=== PATIENT | female | born 1940 | race African-American/Black ===

== ENCOUNTER 2019-06-19 11:39 | Inpatient (IN) ==
[2019-06-19 12:43] LABS: URINE SOURCE CATH
[2019-06-19 12:46] LABS: BASO# 0.01 X1000 (0.0-0.2); BASO% 0.1 % (0.0-0.8); HEMOGLOBIN 11.5 g/dL (12.0-16.0); IMM GRAN# 0.03 X1000 (0.0-0.04); IMM GRAN% 0.2 % (0.0-0.5); LYMPH% 9.1 % (20.5-51.1); MCH 27.1 PG (27-31); MCHC 32.9 g/dL (33-37); MCV 82.4 FL (81-99); MONO# 1.88 X1000 (0.11-0.59); MONO% 15.6 % (1.7-9.3); MPV 12.2 FL (7.4-10.4); NEUT# 9.05 X1000 (1.4-6.5); PLT 176 X1000 (130-400); RBC 4.25 XMIL (4.2-5.4); WBC 12.07 X1000 (4.8-10.8)
[2019-06-19 12:49] LABS: BILIRUBIN URINE NEGATIVE (NEGATIVE); BLOOD URINE MODERATE (NEGATIVE); COLOR YELLOW; GLUCOSE URINE 100 mg/dL (NEGATIVE); KETONE URINE TRACE mg/dL (NEGATIVE); LEUKOCYTES URINE NEGATIVE (NEGATIVE); NITRITE URINE NEGATIVE (NEGATIVE); PH URINE 5.5; PROTEIN URINE 70 mg/dL (NEGATIVE); SP GRAVITY URINE 1.019; TURBIDITY URINE HAZY (CLEAR); UROBILINOGEN URINE 2 mg/dL (NORMAL)
[2019-06-19 12:50] LABS: UR EPITHELIAL CELLS >10 /HPF (<10); URINE BACTERIA 4+ /HPF; URINE RBC <10 /HPF (<10); URINE WBC <10 /HPF (<10)
--- NOTE | 2019-06-19 13:16 | Diag Imaging Result Doc PS360 ---
EXAM: CT HEAD W/O CONTRAST INDICATION: recurrent falls, CHI, R orbital injury TECHNIQUE: This exam was performed using automated exposure control, adjustment of mA or kV according to patient size, and/or use of iterative reconstruction technique. COMPARISON: None. FINDINGS: There is patchy low attenuation in the periventricular and subcortical white matter suggesting fairly advanced microangiopathy. There is no definite acute infarct given the limited sensitivity of CT versus MRI. There is no discrete intracranial mass, mass effect, or intracranial hemorrhage. There is right periorbital soft tissue edema. The calvaria is intact. IMPRESSION: Chronic appearing white matter changes as described. No evidence of acute intracranial pathology. Electronically signed by Glen Rooney 06/19/2019 1:14 PM
--- NOTE | 2019-06-19 13:22 | Diag Imaging Result Doc PS360 ---
EXAM: CT ORBIT W/O CONTRAST INDICATION: recurrent falls, CHI, R orbital injury TECHNIQUE: This exam was performed using automated exposure control, adjustment of mA or kV according to patient size, and/or use of iterative reconstruction technique. COMPARISON: None. FINDINGS: There is prominent right periorbital soft tissue edema. There is no retrobulbar hematoma. The globes are intact. There is no orbital fracture. The remaining visualized facial bones are intact. The paranasal sinuses are clear. The mastoid air cells are clear. The mandible appears to be normally located. IMPRESSION: Right periorbital soft tissue edema but no evidence of orbital fracture. Electronically signed by Glen Rooney 06/19/2019 1:20 PM
[2019-06-19 13:24] LABS: ALB/GLOB RATIO 1.1; ALBUMIN 3.9 g/dL (3.5-5.0); CREATININE 1.4 mg/dL (0.5-0.9); MAGNESIUM 1.5 mg/dL (1.5-2.7); POTASSIUM 5.2 mmol/L (3.5-5.1); TOTAL BILIRUBIN 0.89 mg/dL (0.20-1.00); TOTAL PROTEIN 7.3 g/dL (6.3-8.3)
--- NOTE | 2019-06-19 13:25 | Diag Imaging Result Doc PS360 ---
EXAM: KNEE 3 VIEWS LEFT INDICATION: trauma, pain, decr. ROM TECHNIQUE: 3 views COMPARISON: 06/15/2016 FINDINGS: There is a thin bony fragmentat the medial aspect of the distal fibula that cannot be identified on the previous study. This is suspicious for an avulsed fracture fragment. Its location suggests an MCL injury. Please correlate clinically. There is also an acute nondisplaced fracture traversing the patella horizontally. No other discrete fracture is identified. There is soft tissue edema at the anterior and medial aspect of the knee. IMPRESSION: 1.Nondisplaced patellar fracture as described. 2.Avulsed bony fragment at the medial aspect of the distal fibula, which can be associated with MCL injury. Electronically signed by Glen Rooney 06/19/2019 1:23 PM
--- NOTE | 2019-06-19 13:26 | Diag Imaging Result Doc PS360 ---
EXAM: CHEST-1 VIEW INDICATION: pain, trauma TECHNIQUE: One view COMPARISON: 09/26/2018 FINDINGS: The lungs are grossly clear. There is no discrete pleural fluid collection or pneumothorax. The cardiomediastinal silhouette and central vasculature are grossly unremarkable. IMPRESSION: No evidence of acute pathology by plain radiograph. Electronically signed by Glen Rooney 06/19/2019 1:24 PM
[2019-06-19 13:38] LABS: CK INDEX 0.9 (0.0-2.5); CK-MB 29.48 ng/mL (0.0-5.0)
[2019-06-19 13:45] LABS: INR 1.17; PROTIME 15.1 Seconds (11.0-16.0); PTT 26.8 Seconds (22.3-41.8)
--- NOTE | 2019-06-19 14:40 | PROVIDER DOCUMENTATION ---
This chart was entered by Ching Montemayor Scribe, acting as scribe for Tate Collier MD. HPI-General Adult - General Chief Complaint: Chest Pain Stated Complaint: Fall Time Seen by Provider: 06/19/19 12:06 Source: patient, family (cousin/manager copy) Allergies/Adverse Reactions: Patient Allergies Allergy/AdvReac Type Severity Reaction Status Date / Time No Known Allergies Allergy Verified 06/19/19 12:21 Home Medications: Home Medication List Medication Instructions Recorded Confirmed Last Taken Type Metformin [Glucophage] 500 mg BID 06/15/16 06/19/19 06/18/19 History Lisinopril 1 tab PO DAILY 06/19/19 06/19/19 06/18/19 History Simvastatin 1 tab PO DAILY 06/19/19 06/19/19 06/18/19 History - History of Present Illness -Gen Adult Nature of Presenting Problems: 78yof presents to ED by EMS cc pain in left knee, right eye/cheek swelling and bruised, weakness and multiple falls since . Pt reports she fell while going to mailbox on and hit right eye/cheek, crawled back to porch and got herself up.Pt cousin/manager copy at bedside reports pt fell last night and then again this morning while trying to open door. Cousin also reports pt lives in a bad living situation, alone/by choice, has no heat and she is unsure if pt is compliant with medications. 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 Pt denies phillip/neck pain/back pain. Pt has hx of DM, HTN and hyperlipidemia. . Location of Pain/Injury: reports: face (right eye/cheek), lower extremity (left knee) Pain Radiation: reports: no radiation Quality of Pain: reports: aching, throbbing Severity: reports: mild, moderate Onset/Duration: reports: 3 days ago Context/Activities at Onset: reports: light activity Modifying Factors: worse with: movement, palpation Similar Symptoms Previously?: No Recently seen or treated by another doctor?: No Review of Systems - Adult - REVIEW OF SYSTEMS - ADULT Constitutional: reports: see HPI, [place]. denies: chills, fever Eyes: reports: see HPI, eye pain (right eye/cheek is swollen shut and has bruise) Ears, Nose, Mouth & Throat: reports: no symptoms reported Cardiovascular: reports: see HPI, chest pain (left side) Respiratory: reports: no symptoms reported Gastrointestinal: reports: no symptoms reported Genitourinary: reports: no symptoms reported Musculoskeletal: reports: see HPI, joint pain (left knee) Integumentary: reports: no symptoms reported Neurological: reports: no symptoms reported Psychiatric: reports: no symptoms reported Endocrine: reports: no symptoms reported Hematologic/Lymphatic: reports: no symptoms reported Allergic/Immunologic: reports: no symptoms reported All Other Systems: Reviewed and Negative Past History - Adult - PAST MEDICAL HISTORY-ADULT Review of Records: reports: Nursing Assessment Review, Medications Reviewed, Social history reviewed & non-contributory. Major Childhood Illnesses: reports: denies history Cardiovascular: reports: HTN, hyperlipidemia Respiratory: reports: denies history Gastrointestinal: reports: denies history Obstetrical/Gynecological: reports: denies history Genitourinary: reports: denies history Musculoskeletal: reports: denies history Neurological: reports: denies history Endocrine/Immune: reports: Diabetes Other Conditions: reports: denies history - PRIOR SURGERIES/PROCEDURES Surgical/Procedure History: reports: other (right rotator cuff) - IMMUNIZATION STATUS Childhood Immunizations: See Nurse Assessment Flu Vaccine: See Nurse Assessment - FAMILY HISTORY Family History: reviewed, not pertinent - SOCIAL HISTORY Smoking: denies Physical Exam-General - PHYSICAL EXAM-ADULT Initial Vital Signs Reviewed: Yes - CONSTITUTIONAL General Appearance: alert. negative: anxious, combative - EYES Eyes: PERRL/EOMI, other (right eye is swollen shut and has bruise to eyelid) - HEAD, EARS, NOSE, MOUTH & THROAT HENMT: normocephalic/atraumatic, moist mucous membranes, other (tenderness, bruising to right cheekbone) - RESPIRATORY Respiratory: chest non-tender, lungs clear, normal breath sounds. negative: wheezing - CARDIOVASCULAR Cardiovascular: normal peripheral pulses, no edema, tachycardia. negative: regular rate, rhythm, bradycardia - GASTROINTESTINAL (ABDOMEN) Abdominal Exam: normal bowel sounds, non tender, soft. 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 negative: anxious, disheveled Progress - PLAN OF CARE/RESULTS Progress/Plan/Lab Results: Vital Signs - 8 hr 06/19/19 11:52 Temperature 98.2 F Pulse Rate 118 H Respiratory Rate 18 Blood Pressure 153/95 O2 Sat by Pulse Oximetry 100 Laboratory Results - last 24 hr 06/19/19 11:55 POC Glucose 115 H Result Diagrams: 06/19/19 12:09 06/19/19 12:09 - REASSESSMENT Reassessment #2 Time Reassessed: 13:50 Status: unchanged (imaging reveals patella fx; remaining imaging without fx. lab suggests rhabdo from laying on floor. will consult for admit) - EKG 1 Time of EKG reading by physician:: 12:01 EKG Read and Signed by:: Tate Collier EKG Interpretation (*Must complete 3 of following elements*): Abnormal Rate: 114 Rhythm: AFIB w/RVR QRS: normal ST Wave: non-specific ST changes - XRAY 1 XRAY: Bilateral XRAY Study: Chest Impression: See EMR Report (IMPRESSION: No evidence of acute pathology by plain radiograph. Electronically signed by Glen Rooney 06/19/2019 1:24 PM) 2 XRAY: Left XRAY Study: Knee Impression: See EMR Report (IMPRESSION: 1.Nondisplaced patellar fracture as described. 2.Avulsed bony fragment at the medial aspect of the distal fibula, which can be associated with MCL injury. Electronically signed by Glen Rooney 06/19/2019 1:23 PM) - CT/MRI 1 CT Study: Head Impression: See EMR Report (IMPRESSION: Chronic appearing white matter changes as described. No evidence of acute intracranial pathology. Electronically signed by Glen Rooney 06/19/2019 1:14 PM) 2 CT Study: Orbits Impression: See EMR Report (IMPRESSION: Right periorbital soft tissue edema but no evidence of orbital fracture. Electronically signed by Glen Rooney 06/19/2019 1:20 PM 06/19/19 1320) - CONSULTS/PCP/HOSPITALIST Notification #1 *Consult/PCP/Hospitalist*: Donna/CONFIGURATION SPECIALIST Time Discussed: 13:52 Consult Disposition: Admit (Dr. Barragan accepted pt) Departure - Departure Date of Disposition Decision: 06/19/19 Time of Disposition Decision: 14:00 DIAGNOSIS: Recurrent falls, Closed head injury, Ocular trauma of right eye, Rhabdomyol ysis, Left patella fracture Disposition: ADMITTED INPATIENT 09 Certified Medical Emergency: Emergent Condition: Stable Additional Instructions: ED Follow Up Instructions: You have been treated by a care provider in the Emergency Department. These instructions are being provided to you so you can have an understanding of how to care for yourself upon discharge. Upon discharge from the Emergency Department, you are responsible for making arrangements for follow-up care by a physician of your choice. Take all prescribed medications as directed. Return to the Emergency Department immediately for any new or worsening symptoms. You may call the Physician Referral phone number at [phone] to obtain a list of Physicians who are taking new patients. Referrals and Follow-Ups: Jasbir Garrison MD [Primary Care Provider] - - Critical Care Note This patient required my direct & personal management of CC.: No Attestation - Physician/ MARIELENA Attestation Patient care was provided by Advanced Practice Provider:: No The physician spent face to face time with patient:: Yes Advanced Practice Provider documentation review:: Supervising physician onsite and consulted in the evaluation and care of this patient. The physician did have a face to face encounter with the patient. This chart was documented by the indicated scribe, (Ching Montemayor Scribe) and accurately reflects the services I performed and decisions made by me, Tate Collier MD, as attested by the provider's signature.
[2019-06-19] MEDS ORDERED: APRESOLINE IV PRN (16:17)
[2019-06-19] MEDS: NS 1,000 ML IV SCH (18:23)
[2019-06-19] MEDS ORDERED: CALMOSEPTINE OINTMENT TOP PRN (18:26)
[2019-06-19] MEDS ORDERED: GLUCOPHAGE PO SCH (21:00)
--- NOTE | 2019-06-19 21:36 | HISTORY AND PHYSICAL ---
PRIMARY CARE PHYSICIAN: Dr. Jasbir Garrison. CHIEF COMPLAINT: Multiple falls, weakness and facial and eye bruising and swelling. HISTORY OF PRESENTING ILLNESS: This is a 78-year-old female who [facility] EMS after she had been having multiple falls since . She fell when going to her mailbox on and hit her right eye and cheek on the concrete and crawled back to her porch and got herself up. She is noted to have extensive swelling and bruising and an abrasion to her right cheek. Her right eye is swollen shut. Her cousin at the bedside also states she fell last night and then again this morning while trying to open the door. She has poor living conditions. She is living alone currently. Does not have any heat turned on, but does have space heaters and often puts her face close to the heater and then bolanos her cheek against the heater. Workup showed a white blood cell count of 12.07, potassium of 5.2. Creatine kinase was 3108 with a CK-MB of 29.48 with a negative troponin. Plasma lactate was negative at 2.2. Urinalysis was negative except for 4+ bacteria and moderate blood. We did a chest x-ray that showed no acute findings. We did a head CT that showed no evidence of acute intracranial pathology. We did a left knee x-ray that showed a nondisplaced patellar fracture and an avulsed bony fragment at the medial aspect of the distal fibula, which could be associated with MCL injury. An orbit CT showed right periorbital soft tissue edema but no evidence of an orbital fracture. So, she will be admitted for further evaluation and treatment. PAST MEDICAL HISTORY: Hypertension, hyperlipidemia and diabetes type 2. PAST SURGICAL HISTORY: Right rotator cuff repair. FAMILY HISTORY: Reviewed and noncontributory. SOCIAL HISTORY: She currently lives alone. Is a former smoker. Denies any alcohol or illicit drug use. ALLERGIES: She has no known drug allergies. HOME MEDICATIONS: She takes lisinopril 2.5 mg p.o. daily, metformin 500 mg p.o. b.i.d., and simvastatin 20 mg p.o. daily. LABORATORY DATA: Showed a white blood cell count of 12.07, hemoglobin 11.5, hematocrit 35, platelets 176. PT and INR of 15.1 and 1.17. Sodium 137, potassium 5.2, chloride 97, CO2 21, BUN of 23, creatinine 1.4, glucose 106. Creatine kinase of 3108 with a CK-MB of 29.48. Troponin was negative at 0.030. Plasma lactate of 2.2. Urinalysis showed moderate blood, negative nitrites, negative leukocytes and 4+ bacteria. A chest x-ray showed no acute disease. Head CT showed chronic-appearing white matter changes but no evidence of acute intracranial pathology. The left knee showed a nondisplaced patellar fracture and an avulsed bony fragment at the medial aspect of the distal fibula, which can be associated with MCL injury. An orbit CT showed right periorbital soft tissue edema but no evidence of orbital fracture. REVIEW OF SYSTEMS: She denies any fever, chills, blurred vision, dizziness, chest pain, coughing or shortness of breath. She denies any abdominal pain, constipation, diarrhea, burning or hurting with urination. She does states she has been weak and falling. PHYSICAL EXAMINATION: On arrival, she had a temperature of 98.2, pulse of 118, respirations of 18. Blood pressure was 203/184, retaken a couple of minutes later at 153/95. Saturating 100% on room air. GENERAL: This is a 78-year-old female who is lying in the bed, unable to answer questions appropriately. She has periorbital edema with bruising to the right eye that is purplish in color. She also has an abrasion to her right cheek. Also looks like she has had a burn to her right face where her caregiver states that she puts her face too close to her space heater to try to get heat. Oropharynx and nares are clear. EYES: Pupils are equal, round, reactive to light. Again, her right eye is completely swollen shut, unable to open independently at this time. Purplish bruising. NECK: Normal inspection, normal range of motion. LUNGS: Clear to auscultation bilaterally. Equal lung expansion and chest wall movement. HEART: With regular rate and rhythm. No murmurs, rubs, or gallops. ABDOMEN: Soft, nontender, nondistended. Bowel sounds are present x4 quadrants. MUSCULOSKELETAL: She has 3/5 strength x4 extremities. NEUROLOGICAL: The cranial nerves II-XII do appear grossly intact. ASSESSMENT: 1. Multiple falls. 2. Left nondisplaced patellar fracture. 3. Right periorbital soft tissue edema. 4. Rhabdomyolysis. 5. Diabetes type 2. PLAN: She is being admitted to the medical unit and placed on telemetry and a diabetic diet. We will consult Orthopedics. We will consult Social Work. This patient will most likely need rehab placement at discharge. Family also wants to talk with Social Work about obtaining some power of contract attorney to be able to help her, the cousin that is her plant packer. We will give her normal saline at 125 mL an hour and recheck CBC, BMP, and CPK profile in the morning. Place SCDs for DVT prophylaxis. Further orders after seen by attending and by art sales consultant. Dictated by ABILIO Naik for Nehemias Mixon MD cc: ABILIO Naik MD Edwin K. Matthews, MD
[2019-06-19] MEDS: HUMULIN R SUBQ SCH (23:06)
--- NOTE | 2019-06-19 23:28 | HISTORY AND PHYSICAL ---
ADDENDUM: The patient seen and examined by me [id number]. All the laboratory, vital signs and images were reviewed. The patient presented to the emergency department by EMS due to left knee pain, right eye and face swelling due to multiple falls. Apparently, she fell last outside when she was picking up her mail, she hit her knee and her face at that time, yesterday night also apparently this patient fell but nothing happened and today in the morning again so they decided to bring this patient to the emergency department, this patient lives by herself and apparently her living condition is not good, even though she is completely alert and oriented she has been having problems falling recently multiple times. X-ray of the knee showed a patellar fracture, is nondisplaced though, the CT scan of the head did not show any abnormality including her face only swelling which is evident on my physical exam. I had a nice conversation with her and the niece which is at the bedside. She cannot live by herself anymore. I do believe she needs some help. I will wait for the recommendations of the orthopedic surgeon to see if we need to do something with the patellar fracture, I do believe she needs to go to a rehab center and after that the family will decide if this patient needs to go to a assisted living and/or fci but I do not believe she can be by herself. I have discontinued some of her home medications since she came in with acute on chronic kidney disease, I will continue with IV fluids and hydralazine as needed, I will stop her lisinopril and metformin and also the simvastatin due to elevated LFTs. I agree with the rest of the nurse practitioner's assessment and plan. cc: Nehemias Mixon MD
[2019-06-20] MEDS: NS 1,000 ML IV SCH ×3 (04:29→18:07)
[2019-06-20] MEDS: HUMULIN R SUBQ SCH ×4 (06:45→22:00)
[2019-06-20 07:12] LABS: BASO# 0.01 X1000 (0.0-0.2); BASO% 0.1 % (0.0-0.8); EOS# 0.03 X1000 (0.0-0.7); EOS% 0.4 % (0.0-10.0); HEMATOCRIT 33.7 % (37.0-47.0); HEMOGLOBIN 11.1 g/dL (12.0-16.0); LYMPH# 1.22 X1000 (1.2-3.4); LYMPH% 14.5 % (20.5-51.1); MCH 27.5 PG (27-31); MCHC 32.9 g/dL (33-37); MCV 83.4 FL (81-99); MONO% 17.8 % (1.7-9.3); MPV 11.7 FL (7.4-10.4); NEUT# 5.65 X1000 (1.4-6.5); NEUT% 67.2 % (42.2-75.2); PLT 175 X1000 (130-400); RBC 4.04 XMIL (4.2-5.4); WBC 8.41 X1000 (4.8-10.8)
[2019-06-20 07:39] LABS: CALCIUM 8.3 mg/dL (8.8-10.2); CREATININE 1.4 mg/dL (0.5-0.9); POTASSIUM 3.8 mmol/L (3.5-5.1)
[2019-06-20 08:10] LABS: CK INDEX 0.5 (0.0-2.5); CK-MB 12.99 ng/mL (0.0-5.0)
[2019-06-20] MEDS ORDERED: PRINIVIL PO SCH (09:00)
[2019-06-20] MEDS ORDERED: ZOCOR PO SCH (09:00)
--- NOTE | 2019-06-20 14:17 | ORTHOPAEDICS CONSULTATION ---
DATE: 06/20/2019 HISTORY OF PRESENT ILLNESS: Ms. Rooney is seen for consultation regarding a left patella fracture. She was admitted by the hospitalist after a fall from a standing height at home. She has been admitted for medical evaluation and multiple contusions and bruising. She reports pain and tenderness about the left knee. PAST MEDICAL HISTORY: Significant for diabetes, hyperlipidemia, and hypertension. She is status post a rotator cuff repair in the past. SOCIAL HISTORY: Lives alone. Does not really smoke or drink currently. ALLERGIES: Has no known drug allergies. MEDICATIONS: Regular medicines include metformin, simvastatin, and lisinopril. PHYSICAL EXAMINATION: General: Reveals her to be alert and oriented at the present time. HEENT: She has some ecchymosis and bruising of the right eye. Otherwise, the head is normocephalic and atraumatic. Neck: Supple. Musculoskeletal: She is nontender over the lumbar and thoracic spine. Both upper extremities and right lower extremity appear to be nontender. Left lower extremity has tenderness over the patella with mild soft tissue swelling. She is able to perform a straight leg raise. There is a mild intra-articular effusion. The knee is stable. She is nontender about the hip and ankle. IMAGING: X-rays reviewed, show a nondisplaced left patella fracture. ASSESSMENT: Nondisplaced left patella fracture. PLAN: Patient can be mobilized with a knee immobilizer. I have discussed with her she is to avoid any bending of the knee. She can be full weightbearing with a knee immobilizer. We will need to see her back in roughly 10 to 14 days for a repeat followup and x-rays of the patella. cc: Glen Goldstein MD
--- NOTE | 2019-06-20 15:56 | PROGRESS NOTE ---
DATE: 06/20/2019 SUBJECTIVE: The patient seems to be feeling better. Her right periorbital soft tissue edema seems to be getting better as well. She is still complaining of some pain at the level of the right knee. She is completely awake, alert, and oriented x3. She has been having bowel movements. She is not having any discomfort to urinate, no dysuria. OBJECTIVE: Vital Signs: Temperature 98.2 degrees, pulse 109, respiratory rate 19, blood pressure 123/84, oxygen saturation 100% on room air. HEENT: Head normocephalic. Her right eye is swollen. She does have periorbital soft tissue edema due to trauma. Her pupils are equal and reactive. Neck: Supple. No JVD. Central trachea. Chest: Clear to auscultation. No wheezing. No rales. Abdomen: Soft, nontender, nondistended. No hepatosplenomegaly. Extremities: She has a small excoriation at the level of the right knee that is covered with a Band-Aid. Pain to palpation and mobilization due to a patellar fracture. Neurological: The patient is alert and oriented x3. No focal deficits. LABORATORY: WBC 8.4, hemoglobin 11.1, hematocrit 33.7, platelets 175,000. Sodium 137, potassium 3.8, chloride 103, bicarbonate 21, BUN 23, creatinine 1.4, glucose 74, calcium 8.3. CK 2,788. ASSESSMENT: 1. Left nondisplaced patellar fracture and right periorbital soft tissue edema due to multiple falls. The patient has been evaluated by Orthopedic Surgery Department who will use a brace to treat this patient and evaluate this patient again as an outpatient in 2 weeks. She seems to be feeling better, but I believe she needs to go to a rehab center. On the other hand, I do not think she is going to be able to live by herself anymore since her living conditions are not really good. This has been corroborated by family members at the bedside. They state that she should not be living by herself anymore. They do not think she can take care of her foot or her normal regular activities. 2. Rhabdomyolysis. This is getting better slowly. 3. Type 2 diabetes. Continue with same management. 4. Hypertension. Blood pressure has been stable. Will continue just to monitor. PLAN: Overall, this patient seems to be feeling better. She is completely alert and oriented. She is following commands. I have been holding her lisinopril, metformin, and Symbicort due to her acute kidney injury and liver dysfunction. I will recheck all that again in the morning and I will readjust her medications as needed. cc: Nehemias Mixon MD
[2019-06-21] MEDS: NS 1,000 ML IV SCH ×2 (06:40→09:26)
[2019-06-21] MEDS: HUMULIN R SUBQ SCH ×4 (06:47→21:50)
[2019-06-21 07:33] LABS: BASO# 0.01 X1000 (0.0-0.2); BASO% 0.1 % (0.0-0.8); EOS# 0.01 X1000 (0.0-0.7); EOS% 0.1 % (0.0-10.0); HEMATOCRIT 32.8 % (37.0-47.0); HEMOGLOBIN 10.9 g/dL (12.0-16.0); IMM GRAN# 0.02 X1000 (0.0-0.04); IMM GRAN% 0.2 % (0.0-0.5); LYMPH# 1.32 X1000 (1.2-3.4); MCH 28.1 PG (27-31); MCHC 33.2 g/dL (33-37); MCV 84.5 FL (81-99); MONO# 1.62 X1000 (0.11-0.59); MPV 12.2 FL (7.4-10.4); NEUT# 7.17 X1000 (1.4-6.5); NEUT% 70.6 % (42.2-75.2); PLT 175 X1000 (130-400); RBC 3.88 XMIL (4.2-5.4); RDW 13.2 % (11.5-14.5); WBC 10.15 X1000 (4.8-10.8)
[2019-06-21 07:36] LABS: ALB/GLOB RATIO 0.8; ALBUMIN 2.9 g/dL (3.5-5.0); CALCIUM 8.2 mg/dL (8.8-10.2); CREATININE 1.1 mg/dL (0.5-0.9); MAGNESIUM 1.4 mg/dL (1.5-2.7); PHOSPHORUS 2.1 mg/dL (2.7-4.5); POTASSIUM 4.3 mmol/L (3.5-5.1); TOTAL BILIRUBIN 0.44 mg/dL (0.20-1.00); TOTAL PROTEIN 6.7 g/dL (6.3-8.3)
[2019-06-21 07:39] LABS: LYMPHS 9 % (21-51); MONO 9 % (1-9); SEGS 82 % (42-75)
[2019-06-21 08:15] LABS: CK INDEX 0.7 (0.0-2.5); CK-MB 12.09 ng/mL (0.0-5.0)
--- NOTE | 2019-06-21 08:53 | EKG Report ---
Test Performed on : 06/21/2019 08:41:23 AM Test Reason : possible Afib Blood Pressure : / mmHG Vent. Rate : 118 BPM Atrial Rate : 118 BPM P-R Int : 100 ms QRS Dur : 064 ms QT Int : 310 ms P-R-T Axes : 067 079 012 degrees QTc Int : 434 ms Sinus tachycardia. with short AR with premature atrial complexes. with aberrant conduction. Otherwise normal ECG When compared with ECG of 19-JUN-2019 12:01, (Unconfirmed) Sinus rhythm. has replaced Atrial fibrillation. Nonspecific T wave abnormality, improved in Anterolateral leads Confirmed by Tawanda HSU, P.J.M ([id number]) on 06/21/2019 6:32:58 PM
--- NOTE | 2019-06-21 09:21 | EKG Report ---
Test Performed on : 06/19/2019 12:01:47 PM Test Reason : ED. No order in [place] Blood Pressure : / mmHG Vent. Rate : 114 BPM Atrial Rate : 117 BPM P-R Int : 000 ms QRS Dur : 062 ms QT Int : 328 ms P-R-T Axes : 000 042 266 degrees QTc Int : 452 ms Atrial fibrillation. with rapid ventricular response. ST & T wave abnormality, consider inferior ischemia Abnormal ECG When compared with ECG of 26-SEP-2018 10:43, Previous ECG has undetermined rhythm, needs review ST more depressed in Anterior leads Non-specific change in ST segment in Lateral leads Nonspecific T wave abnormality, worse in Anterolateral leads Unconfirmed Result
[2019-06-21] MEDS ORDERED: CARDIZEM IV ONE (16:26)
[2019-06-21] MEDS ORDERED: LABETALOL IV PRN (16:28)
[2019-06-21] MEDS ORDERED: PRINIVIL PO ONE (16:28)
[2019-06-21] MEDS ORDERED: POTASSIUM PHOSPHATE 40 MEQ in NS 250 ML IV ONE (16:32)
[2019-06-21] MEDS ORDERED: MAGNESIUM SULFATE 4 GM/S.W.I. 4 GM/100 ML IVPB IV ONE (16:32)
[2019-06-21] MEDS: SODIUM BICARBONATE 8.4% 150 MEQ in D5W 1,000 ML IV SCH (17:31)
--- NOTE | 2019-06-21 18:47 | PROGRESS NOTE ---
DATE: 06/21/2019 SUBJECTIVE: This morning, Ms. Rooney refers to be doing okay. She refers to be feeling a lot better. Denies any chest pain or shortness of breath. OBJECTIVE: Vital signs: Blood pressure is 172/108, pulse of 54, respirations 16, temperature is 98 degrees. General: Ms. Rooney is a 78-year-old female. She is in bed in no distress. HEENT: Mucosa is pink and moist. Anicteric and acyanotic. Neck: Supple. Chest: Good air entry bilaterally. There are no crepitations and no rhonchi. Cardiovascular: Irregularly irregular. No murmurs. Abdomen: Soft, nontender. Bowel sounds present. Extremities: No pedal edema. LABORATORY DATA: Creatinine was 1.1. CBC shows normocytic anemia. Chemistry is reviewed. Bicarb is 19, creatinine is 1.9. The patient's phosphorus and magnesium are all reduced. Prob is 1756. A repeat EKG this morning shows sinus tachycardia. The telemetry monitoring did show multiple PACs. ASSESSMENT: 1. Status post mechanical fall, resulting into a left nondisplaced patellar fracture. The patient is status post orthopedic evaluation. For now, we will continue with orthopedic knee braces and the rehabilitation. 2. Rhabdomyolysis, improving. 3. Diabetes mellitus. We will continue with insulin regimen at this point. 4. Hypertension, uncontrolled. We will start the patient on medication for better control. 5. Narrow complex tachycardia. Seems to be sinus with multiple premature atrial contractions. However, on physical exams, it also sounds quite irregular and I wonder if there is intermittent paroxysmal atrial fibrillation. We will repeat an electrocardiogram in the morning and also get an echocardiogram. We will give the patient 10 mg of intravenous Cardizem stat to see if we get a better reading and go from there. 6. Acute on chronic renal failure, improved. 7. Non-gap metabolic acidosis, most likely related to the kidney failure. 8. Diabetes mellitus. The patient will be on insulin regimen for now. Metformin has been withheld. 9. Mild hematoma around the right periorbital soft tissue area noted. cc: Brenton Win MD [facility]
[2019-06-21] MEDS: COREG PO SCH (20:13)
--- NOTE | 2019-06-22 04:34 | EKG Report ---
Test Performed on : 06/21/2019 6:19:30 PM Test Reason : irregular heart rate Blood Pressure : / mmHG Vent. Rate : 114 BPM Atrial Rate : 138 BPM P-R Int : 000 ms QRS Dur : 066 ms QT Int : 364 ms P-R-T Axes : 000 054 051 degrees QTc Int : 501 ms sinus with PAC Nonspecific T wave abnormality Abnormal ECG When compared with ECG of 21-JUN-2019 08:41, (Unconfirmed) Current undetermined rhythm precludes rhythm comparison, needs review Nonspecific T wave abnormality, worse in Anterior leads Confirmed by Tawanda HSU, P.J.M ([id number]) on 06/23/2019 3:07:16 PM
[2019-06-22 06:44] LABS: HEMATOCRIT 31.1 % (37.0-47.0); HEMOGLOBIN 10.3 g/dL (12.0-16.0); MCH 27.2 PG (27-31); MCHC 33.1 g/dL (33-37); MCV 82.1 FL (81-99); MPV 11.7 FL (7.4-10.4); RBC 3.79 XMIL (4.2-5.4); RDW 12.7 % (11.5-14.5); WBC 16.06 X1000 (4.8-10.8)
[2019-06-22 06:54] LABS: HEMOGLOBIN A1C 7.6 % (4.8-6.0)
[2019-06-22 07:07] LABS: ALB/GLOB RATIO 0.8; ALBUMIN 2.8 g/dL (3.5-5.0); CALCIUM 7.4 mg/dL (8.8-10.2); CREATININE 1.1 mg/dL (0.5-0.9); MAGNESIUM 1.9 mg/dL (1.5-2.7); PHOSPHORUS 2.6 mg/dL (2.7-4.5); POTASSIUM 3.6 mmol/L (3.5-5.1); TOTAL BILIRUBIN 0.84 mg/dL (0.20-1.00); TOTAL PROTEIN 6.1 g/dL (6.3-8.3)
--- NOTE | 2019-06-22 07:23 | EKG Report ---
Test Performed on : 06/22/2019 06:49:28 AM Test Reason : Afib Blood Pressure : / mmHG Vent. Rate : 095 BPM Atrial Rate : 375 BPM P-R Int : 000 ms QRS Dur : 068 ms QT Int : 366 ms P-R-T Axes : 000 050 042 degrees QTc Int : 459 ms Atrial fibrillation. Abnormal ECG When compared with ECG of 21-JUN-2019 18:19, (Unconfirmed) Previous ECG has undetermined rhythm, needs review Confirmed by Tawanda HSU, P.J.M ([id number]) on 06/23/2019 3:08:22 PM
[2019-06-22] MEDS ORDERED: PRINIVIL PO SCH (09:00)
[2019-06-22] MEDS ORDERED: MAGNESIUM SULFATE 2 GM/S.W.I. 2 GM/50 ML IVPB IV ONE (09:43)
[2019-06-22] MEDS ORDERED: POTASSIUM PHOSPHATE 60 MEQ in NS 250 ML IV ONE (09:43)
[2019-06-22] MEDS ORDERED: CARDIZEM PO SCH (09:45)
--- NOTE | 2019-06-22 10:28 | Diag Imaging Result Doc PS360 ---
CHEST-2 VIEWS - 06/22/2019 INDICATION: fever. ? pneumonia COMPARISON: 06/19/2019 FINDINGS: There is cardiomegaly and mild pulmonary vascular congestion. There is some ill-defined infiltrate in the lower lobes bilaterally, best seen on the lateral view. No pneumothorax or pleural effusion. IMPRESSION: Ill-defined bilateral lower lobe infiltrate concerning for bronchopneumonia. Cardiomegaly and pulmonary vascular congestion. Electronically signed by Lalo Rondon 06/22/2019 10:25 AM
[2019-06-22] MEDS: ZOFRAN IV PRN (11:02)
--- NOTE | 2019-06-22 11:53 | PROGRESS NOTE ---
DATE: 06/22/2019 SUBJECTIVE: This morning Ms. Rooney refers to be feeling okay. Denies any complaints. A niece was at the bedside at the time of the encounter. OBJECTIVE: Vital signs: Blood pressure 137/79, pulse of 94, respirations 20, and temperature is 99.9 degrees. The patient is saturating 95%. General: Ms. Rooney is a 78-year-old elderly female. She is in bed in no distress. HEENT: Mucosa is pink and moist. Anicteric. Acyanotic. Neck: Supple. Chest: Good air entry bilaterally. Did not hear any crepitations or rhonchi. Cardiovascular: Irregularly irregular with variable rate. No murmurs. No rubs. No gallops. GI: Abdomen is soft, nontender. Bowel sounds present. Extremities: No pedal edema. The left knee is in orthopedic braces. No pedal edema. CRAYON SAWYER: Patient is awake, alert, and oriented. LABORATORY DATA: WBC is 16.06, hemoglobin is 10.3, and platelet count of 138,000. Chemistry is also reviewed. Sodium 131, potassium 3.6, chloride 97, bicarb is 21, glucose 163. A1c was 7.6. Phosphorus is low and magnesium is borderline low. CURRENT MEDICATIONS: All have been reviewed. DIAGNOSTIC: An EKG which was done early this morning shows atrial fibrillation. ASSESSMENT: 1. Status post mechanical fall resulting into a left nondisplaced patellar fracture. The patient has been evaluated by Orthopedic Surgery. Recommendations to continue with orthopedic knee braces and rehab. 2. Rhabdomyolysis improving. We are waiting on the CK level for today. The patient looks remarkably well hydrated. 3. Diabetes mellitus. We will continue with insulin regimen. A1c of 7.6. The patient will be okay going home on her oral hypoglycemic agents. 4. Narrow complex tachycardia. The patient seems to be going in and out of paroxysmal atrial fibrillation with normal sinus rhythm. Occasional PACs. An EKG this morning shows an atrial fibrillation. Her rate goes anywhere from 98 to about 120 so. We are going to start her on p.o. Cardizem. The patient obviously has a high CHADS Vasc score. Fortunately, she seems to have sustained multiple falls in the past, and will be very high risk on the anticoagulation. We will get Cardiology to evaluate her, and give us some recommendations. The patient is also pending an echocardiogram this morning. 5. Acute on chronic renal failure, resolved. 6. Non-gap metabolic acidosis improved. 7. Mild hematoma around the right periorbital soft tissue region resolved. 8. Leukocytosis with mild elevation in body temperature. This will be concerning for any occult infection. For now, we are going to do a chest x-ray to rule out any pneumonia. The patient denies any urinary symptoms, and no abdominal pain for now. 9. Electrolyte abnormality including hypophosphatemia, borderline hypomagnesemia, and hypopotassemia will all be addressed. For today, we are going to continue with the current medication for blood pressure control. We will also add Cardizem for better heart rate. We are pending echocardiogram and Cardiology evaluation today. The patient's CK, troponin and TSH are also still pending. cc: Brenton Win MD [facility]
[2019-06-22] MEDS: MAXIPIME 1 GM in NS 50 ML IV SCH ×2 (12:09→23:42)
[2019-06-22] MEDS: COREG PO SCH (12:09)
[2019-06-22] MEDS: ZYVOX PO SCH ×2 (12:09→20:57)
[2019-06-22] MEDS: LOVENOX SUBQ SCH (12:09)
--- NOTE | 2019-06-22 12:18 | CARDIOLOGY CONSULTATION ---
DATE: 06/22/2019 REASON FOR STUDY: Cardiology was consulted for atrial fibrillation. HISTORY OF PRESENT ILLNESS: A 78-year-old -[place] lady came to the hospital via EMS. She has been having multiple falls since . She fell when going to her mailbox on , hit her right eye and cheek on the concrete and crawled back to her porch. She was noted to have extensive swelling and bruising on the abrasion of the right cheek when she came in. Since her admission, this has improved. Her family member states that in the recent past, she has also had multiple falls. Knee x-ray was done which revealed nondisplaced patella fracture and avulsed bony fragment at the medial aspect of the distal fibula. She has poor living conditions, she is living alone currently. CT scan of the head was done. There was no obvious acute intracranial pathology. She has a patella fracture and a brace. Today she went into atrial fibrillation, started on p.o. Cardizem. She denies any chest pain. In the past, she has also tripped and fallen as well. PAST MEDICAL HISTORY: Hypertension, hyperlipidemia, diabetes. PAST SURGICAL HISTORY: Right rotator cuff repair. HOME MEDICATIONS: 1. Lisinopril 2.5. 2. Metformin 500 b.i.d. 3. Simvastatin 20. REVIEW OF SYSTEMS: Constitutional: She denies any fevers or chills. Genitourinary: There is no dysuria or hematuria. Respiratory: There is no history of cough, expectoration, hemoptysis. There is no history of fevers or chills. PHYSICAL EXAMINATION: Vital signs: Blood pressure 150/95 when she came in. Neck: Jugular venous pressure was normal. There was no carotid bruit. Cardiovascular: First and second heart sounds were heard. Respiratory: Normal air entry. There is no crepitations or rhonchi. Abdomen: Soft, nontender. There was no guarding or rigidity. Bowel sounds were heard. Central nervous system: Had generalized weakness. She was alert, answering questions appropriately. Detailed central nervous system examination not performed. LABORATORY EXAMINATION: Sodium 131, potassium 3.6, BUN 11, creatinine 1.1. Creatine kinase 770, peak creatine kinase was 3108 with an MB of 29.48. First troponin was normal. Subsequent troponin was abnormal at 0.124. Hemoglobin 10.3, hematocrit 31, platelet count of 184,000, WBC elevated at 16.06. Urine urinary tract infection noted. IMAGING: Chest x-ray, ill-defined lower lobe infiltrate suggestive of bronchopneumonia noted. CURRENT MEDICATIONS: Include: 1. Cardizem 30 mg q.6. 2. Cefepime. 3. Coreg 6.25 b.i.d. 4. Insulin as directed. 5. Zyvox. ASSESSMENT AND PLAN: 1. Ms Vickie Rooney is a 78-year-old lady who has history of hypertension, diabetes, multiple falls. Sustained a fracture of her patella. CT scan of her head was unremarkable. She had a chest x-ray suggestive of bronchopneumonia. In addition, urine was abnormal. She is on multiple antibiotics. From a cardiac standpoint, her echocardiogram was done she has preserved left ventricular systolic function. Please see detailed echocardiogram report. She has elevated CKs and CK-MB suggestive of rhabdomyolysis. She does not complain of any chest pain. Her first set of cardiac enzymes also revealed normal troponin. Second troponin was abnormal. This probably is related to rhabdomyolysis and maybe type 2 ischemia accounting for her abnormality in the cardiac enzymes. We will get serial cardiac enzymes, 2 more sets, look at her troponin as well. 2. She has had multiple falls. We will put her on aspirin and will not start her on any anticoagulation therapy. 3. We will risk stratify with a stress test to rule out ischemia and assess for ischemia. 4. Pneumonia. Continue with her medications and she is on multiple antibiotics. 5. As far as her atrial fibrillation is concerned, it is under control. She is on beta-blockers and ARY inhibitors. I have not made any changes. Thank you for the consult. cc: Dwayne Bellamy MD
[2019-06-22] MEDS: SODIUM BICARBONATE 8.4% 150 MEQ in D5W 1,000 ML IV SCH (13:26)
[2019-06-22] MEDS: ASPIRIN PO SCH (14:32)
[2019-06-22] MEDS: HUMULIN R SUBQ SCH ×3 (14:39→20:57)
[2019-06-22 15:18] LABS: CK INDEX 0.7 (0.0-2.5); CK-MB 4.42 ng/mL (0.0-5.0)
--- NOTE | 2019-06-22 16:50 | ECHO REPORT ---
ORDER DATE: 06/22/2019 INDICATION: Atrial fibrillation and fall. M-MODE MEASUREMENTS: Left ventricle end diastole: 3.8. Left ventricle end systole: 2.6. Posterior wall: 1.0. Interventricular septum: 1.0. Left atrium: 4.2. Aortic diameter: 2.9. SUMMARY OF 2-DIMENSIONAL IMAGIN. Left ventricular function is normal. Ejection fraction is estimated at 68%. No wall motion abnormality noted. 2. The mitral annulus shows some calcification. The mitral valve shows mild to moderate degree of regurgitation. 3. Pulsed wave Doppler of mitral inflow shows the presence of a single filling wave. The patient is in atrial fibrillation. 4. Pulmonic valve shows mild degree of regurgitation. 5. The aortic valve shows calcification of the cusps without stenosis. Color flow mapping is unremarkable. 6. The tricuspid valve shows very mild degree of regurgitation. 7. The inferior vena cava is not dilated. 8. The pulmonary systolic pressure is estimated at 36 mmHg. 9. The left atrium appears to be mild to moderately enlarged. 10.There is no pericardial effusion, mass, and no thrombus. 11.The right ventricle and right atrium do not appear to be dilated. cc: MD Brenton Mcpherson MD
[2019-06-22] MEDS: CARDIZEM PO SCH (18:24)
[2019-06-22] MEDS: TYLENOL PO PRN (20:57)
[2019-06-22 22:14] LABS: CK INDEX 0.7 (0.0-2.5); CK-MB 3.8 ng/mL (0.0-5.0)
[2019-06-23] MEDS ORDERED: NS 500 ML IV ONE (00:03)
[2019-06-23] MEDS: COREG PO SCH ×2 (06:09→09:16)
[2019-06-23] MEDS: CARDIZEM PO SCH ×3 (06:10→19:20)
[2019-06-23] MEDS: HUMULIN R SUBQ SCH ×4 (07:00→21:05)
[2019-06-23 07:31] LABS: HEMATOCRIT 29.2 % (37.0-47.0); HEMOGLOBIN 9.8 g/dL (12.0-16.0); MCHC 33.6 g/dL (33-37); MCV 83.4 FL (81-99); MPV 12.3 FL (7.4-10.4); RBC 3.5 XMIL (4.2-5.4); RDW 13.2 % (11.5-14.5); WBC 15.84 X1000 (4.8-10.8)
[2019-06-23 07:37] LABS: ALBUMIN 2.4 g/dL (3.5-5.0); CALCIUM 7.1 mg/dL (8.8-10.2); CREATININE 2.1 mg/dL (0.5-0.9); PHOSPHORUS 6.7 mg/dL (2.7-4.5); POTASSIUM 3.9 mmol/L (3.5-5.1)
--- NOTE | 2019-06-23 07:49 | EKG Report ---
Test Performed on : 06/23/2019 07:18:17 AM Test Reason : afib Blood Pressure : / mmHG Vent. Rate : 075 BPM Atrial Rate : 073 BPM P-R Int : 000 ms QRS Dur : 076 ms QT Int : 430 ms P-R-T Axes : 000 047 043 degrees QTc Int : 480 ms Atrial fibrillation. Low voltage QRS Abnormal ECG When compared with ECG of 22-JUN-2019 06:49, (Unconfirmed) No significant change was found Confirmed by Tawanda HSU, P.J.M ([id number]) on 06/23/2019 3:12:45 PM
[2019-06-23 08:04] LABS: CREATININE 2.2 mg/dL (0.5-0.9); MAGNESIUM 2.3 mg/dL (1.5-2.7)
[2019-06-23 08:05] LABS: CALCIUM 6.7 mg/dL (8.8-10.2)
[2019-06-23] MEDS ORDERED: NS 1,000 ML IV ONE (08:05)
[2019-06-23] MEDS ORDERED: NS 1,000 ML ONE (08:29)
[2019-06-23] MEDS ORDERED: NS 1,000 ML IV SCH (08:30)
[2019-06-23] MEDS: ZYVOX PO SCH ×2 (09:16→21:09)
[2019-06-23] MEDS: ASPIRIN PO SCH (09:16)
[2019-06-23] MEDS: LOVENOX SUBQ SCH (09:16)
[2019-06-23 09:28] LABS: CK INDEX 1.1 (0.0-2.5); CK-MB 6.23 ng/mL (0.0-5.0)
[2019-06-23] MEDS: NS 1,000 ML IV SCH ×2 (10:15→23:45)
[2019-06-23] MEDS: MAXIPIME 1 GM in NS 50 ML IV SCH ×2 (10:15→22:21)
[2019-06-23] MEDS: TYLENOL PO PRN (16:38)
--- NOTE | 2019-06-23 17:24 | PROGRESS NOTE ---
DATE: 06/23/2019 This morning Ms. Rooney referred to be doing well. There was a gentleman at the bedside, who is a family member. Per the nursing staff, Ms. Rooney blood pressures have been fairly low throughout last night to this morning. When I went in, I rechecked it manually myself, and the systolic was between 90 to 100, diastolic was 50. Ms. Rooney was sleeping but was easily arousable. OBJECTIVE: Vital signs: Currently, blood pressure is 88/47, pulse of 71, respirations 16, temperature is 97.6 degrees General: Ms. Rooney is a 78-year-old elderly female. She was not in any distress. HEENT: Mucosa was pink but dry. Anicteric. Acyanotic. Neck: Supple. I did not see any jugular venous distention (JVD). Chest: Good air entry bilateral. No crepitations. No rhonchi. Cardiovascular: Irregularly irregular but rate controlled. No murmurs, no rubs, no gallops. GI Gastrointestinal: Abdomen was soft. There was no tenderness. Bowel sounds present. Extremities: The left knee was in orthopedic braces. No edema. Central Nervous System: Patient was lethargic, easily arousable, but then she will go back to sleep. She will move extremities and she will follow basic commands. LABORATORY DATA: WBC is 15.84, hemoglobin is 9.8, platelet count of 180,000. Chemistry is reviewed. Sodium is 131, creatinine is 2.1 which has gone up. Calcium is 7.1 and phosphorus is 6.7. The patient's albumin is 2.4. Troponins have also been trending high, this morning it is 0.153. CURRENT MEDICATIONS: Have also been reviewed. She is currently on aspirin, cefepime, Cardizem, sliding scale insulin, Zyvox, normal saline. Coreg and lisinopril have been discontinued. ASSESSMENT: 1. Status post mechanical fall resulting in a left nondisplaced patellar fracture. The patient has been evaluated by Orthopedics. She is currently in orthopedic knee braces and she is pending rehabilitation. 2. Rhabdomyolysis, improving. 3. Clinical volume depletion. Will continue with IV fluids. 4. Hypotension due to a combination of blood pressure medications and dehydration. Medications have been withheld, and patient will continue on fluid resuscitation. 5. Atrial fibrillation with rapid ventricular response. The patient was started on p.o. Cardizem. The pulse is now better controlled. The patient has been evaluated by Cardiology. For now, will continue with aspirin. They have recommended no anticoagulant at this point because of her risk of fall. 6. [id number] renal failure. Creatinine has gotten worse overnight. 7. Mild hematoma around the right periorbital soft tissue, resolved. 8. Bronchopneumonia on chest x-ray. The patient is currently on antimicrobial therapy. 9. Diabetes mellitus, controlled. 10. Troponin elevations, which could be demand mismatch from tachyarrhythmia versus a true coronary artery disease with acute coronary syndrome. Ms Rooney is pending a stress test today. However, because of her low blood pressures, this has been put on hold. We will continue with the aspirin. We have also added statin medication, and continue with the diltiazem for the heart rate control. cc: Brenton Win MD [facility]
[2019-06-24] MEDS: CARDIZEM PO SCH ×5 (00:18→19:37)
[2019-06-24] MEDS: HUMULIN R SUBQ SCH ×4 (06:37→21:00)
[2019-06-24 07:02] LABS: BASO# 0.01 X1000 (0.0-0.2); BASO% 0.1 % (0.0-0.8); EOS# 0.07 X1000 (0.0-0.7); EOS% 0.4 % (0.0-10.0); IMM GRAN# 0.09 X1000 (0.0-0.04); IMM GRAN% 0.5 % (0.0-0.5); LYMPH# 1.17 X1000 (1.2-3.4); LYMPH% 7.1 % (20.5-51.1); MCH 26.8 PG (27-31); MCHC 32.3 g/dL (33-37); MCV 83.1 FL (81-99); MONO# 1.54 X1000 (0.11-0.59); MONO% 9.3 % (1.7-9.3); MPV 12.2 FL (7.4-10.4); NEUT# 13.65 X1000 (1.4-6.5); NEUT% 82.6 % (42.2-75.2); PLT 204 X1000 (130-400); RBC 3.73 XMIL (4.2-5.4); WBC 16.53 X1000 (4.8-10.8)
[2019-06-24 07:36] LABS: CREATININE 2.6 mg/dL (0.5-0.9); PHOSPHORUS 5.4 mg/dL (2.7-4.5); POTASSIUM 3.7 mmol/L (3.5-5.1)
[2019-06-24] MEDS: ZYVOX PO SCH (10:10)
[2019-06-24] MEDS: ASPIRIN PO SCH (10:10)
[2019-06-24] MEDS: LOVENOX SUBQ SCH (10:11)
[2019-06-24] MEDS: TYLENOL PO PRN (10:46)
[2019-06-24] MEDS: MAXIPIME 1 GM in NS 50 ML IV SCH ×2 (10:48→23:44)
--- NOTE | 2019-06-24 10:57 | PROGRESS NOTE ---
DATE: 06/24/2019 SUBJECTIVE: His O is followed by Dr. Jasbir Garrison. She has history of multiple falls, weakness, facial and eye bruising and swelling. A 78-year-old female presented to our emergency room after having multiple falls. During this last week she fell while going to her mailbox on and hit her right eye and cheek on the concrete. Called back to report she got herself up, noted to have extensive swelling, bruising, abrasion right cheek. Her right eye is swollen. Her cousin was with her at the bedside, and said she fell the night before while trying to open up the door. She has apparently poor living conditions. Lives alone currently. Creatine kinase was 3108 with an MB fraction of 29, negative troponin. Chest x-ray showed no acute findings. She reports that she feels better today. OBJECTIVE: General: On exam, she is awake and alert and says her mouth is a little bit dry. Her fluids are going at 75 mL an hour, and she is drinking and eating with a lot of support. Vital Signs: Temperature 98.4 degrees, pulse 60, respirations 16, blood pressure 104/62. Eyes: Pupils are equal and round. Neck: No distended neck veins. Lungs: Lungs are clear in all lung maradiaga. Cardiovascular exam: Regular rhythm and rate without murmur or S3. : Urine output is 4000 mL. ASSESSMENT AND PLAN: 1. Status post mechanical fall resulting in left nondisplaced patella fracture. The patient has been evaluated by Orthopedics. Continue orthopedic knee braces and rehabilitation. 2. Rhabdomyolysis, which is improving. CK level is going down. 3. Diabetes mellitus type 2. Hemoglobin A1c was 7.6. The patient will be going home on her oral hypoglycemic agents. 4. Narrow complex tachycardia. Seems to be going in and out of a paroxysmal atrial fibrillation, between that and normal sinus rhythm. She has occasional premature atrial complexes. Her heart rate is anywhere still from 98 to 120s. She has been put on some Cardizem. She has a high CHADS-VASc score, but she sustained multiple falls in the past and she would be a high risk for anticoagulation. 5. Acute on chronic renal failure, which is resolved. 6. Non-anion gap acidosis, improved. 7. Leukocytosis. She had a mild low-grade temperature, but do not see any evidence of full infection. Chest x-ray is clear. Denies any urinary symptoms. 8. Electrolyte abnormalities, hypophosphatemia, borderline hypomagnesemia, hypo potassium, and those have all been supplemented. REVIEW OF HER ORDERS: On her lab today, white count still at 16,530, hematocrit 31, platelet count 208,000. Sodium 130, potassium 3.7, chloride 98. BUN 32, creatinine 2.6. Creatinine has gone up a little bit. I am going to increase her fluids from 75 mL to 100 mL an hour. She is on Zyvox 600 mg IV every 12 hours, cefepime 1 g IV q. 12 hours. cc: Rivas Linder MD
--- NOTE | 2019-06-24 11:03 | ORTHOPAEDICS PROGRESS NOTE ---
DATE: 06/24/2019 SUBJECTIVE: No acute events overnight. The patient reports minimal pain in the knee. She has not gotten up and ambulated yet. Her knee immobilizer is in place and good position. OBJECTIVE: White count is 16.5, hematocrit is 31.Extremities: Examination of the left lower extremity shows skin to be intact. Knee immobilizer in place and in good position. Mild tenderness to palpation over her distal pole of her patella. Nontender distally in her leg, ankle, foot. Neurovascularly intact. ASSESSMENT: 78-year-old female with left nondisplaced transverse patella fracture. PLAN: 1. Patient can be weightbearing as tolerated in her knee immobilizer. She needs to keep the knee immobilizer on at all times. Physical therapy to ambulate and work on gait training. 2. Ice to the left lower extremity as needed for pain. 3. Appreciate hospitalist's and cardiology recommendations for medical management. 4. Disposition per primary team. The plan is for patient to be discharged to a rehab facility when she is stable medically. She will follow up with Dr. Goldstein at [facility] in 12 to 14 days with repeat x-rays.
[2019-06-24] MEDS: NS 1,000 ML IV SCH ×3 (13:39→23:44)
[2019-06-25] MEDS: ZYVOX PO SCH ×2 (00:25→08:46)
[2019-06-25] MEDS: LIPITOR PO SCH ×2 (00:25→23:44)
[2019-06-25] MEDS: CARDIZEM PO SCH ×3 (00:26→11:38)
[2019-06-25] MEDS: NS 1,000 ML IV SCH ×2 (05:31→10:21)
[2019-06-25] MEDS: TYLENOL PO PRN (05:51)
[2019-06-25] MEDS: HUMULIN R SUBQ SCH ×4 (07:00→23:44)
[2019-06-25] MEDS ORDERED: D50W SYRINGE IV ONE (07:01)
--- NOTE | 2019-06-25 07:15 | Diag Imaging Result Doc PS360 ---
EXAM: CHEST-1 VIEW HISTORY: pneumonia TECHNIQUE: Single view COMPARISON: 06/22/2019 FINDINGS: Poor inspiratory effort. Mild vascular distention. There is basilar atelectasis. Possible trace effusions. No consolidation. IMPRESSION: Persistent pulmonary edema Electronically signed by Harjeet Zavala 06/25/2019 7:12 AM
[2019-06-25 07:55] LABS: ALB/GLOB RATIO 0.8; ALBUMIN 2.2 g/dL (3.5-5.0); CALCIUM 7.1 mg/dL (8.8-10.2); CREATININE 2.1 mg/dL (0.5-0.9); POTASSIUM 3.8 mmol/L (3.5-5.1); TOTAL BILIRUBIN 0.36 mg/dL (0.20-1.00); TOTAL PROTEIN 5.1 g/dL (6.3-8.3)
[2019-06-25 08:09] LABS: CK INDEX 0.9 (0.0-2.5); CK-MB 7.39 ng/mL (0.0-5.0)
[2019-06-25] MEDS: ASPIRIN PO SCH (08:46)
[2019-06-25] MEDS: LOVENOX SUBQ SCH (08:46)
[2019-06-25] MEDS: MAXIPIME 1 GM in NS 50 ML IV SCH (11:35)
[2019-06-25] MEDS ORDERED: LASIX IV ONE (11:59)
--- NOTE | 2019-06-25 12:36 | PROGRESS NOTE ---
DATE: 06/25/2019 SUBJECTIVE: This morning, Ms. Rooney refers to be hurting in her abdomen, but otherwise she remains stable. Per the nursing staff, she has just not been eating for the past 2 days. OBJECTIVE: Vital signs: Blood pressure is 151/79, pulse of 80, respiration is 20, temperature is 98.8 degrees. The patient is saturating 100%. General: Ms. Rooney is a 78-year-old female. She is in bed. She does not seem to be in any distress. HEENT: Mucosa is pink and moist. Anicteric. Acyanotic. Neck: Supple. Chest: Air entry is bilaterally reduced. There are some crepitations in the posterior lung maradiaga. Cardiovascular: Regular rate and rhythm. No murmurs. GI/Abdomen: Soft. Distended, but nontender. Bowel sounds present. Extremities: Left knee continues to be in orthopedic braces. WEIGHT GUESSER: Patient is lethargic with the eyes closed, but easily arousable, and will follow basic commands. LABORATORY DATA: No CBC for this morning. Chemistry is also reviewed. Sodium is 134, potassium is 3.8, chloride is 102, bicarbonate is 15. BUN is 30, creatinine is 2.1. AST and ALT are elevated. DIAGNOSTIC STUDIES: 1. A chest x-ray this morning shows persistent pulmonary edema. 2. Echocardiogram did show ejection fraction of 68%. ASSESSMENT: 1. Status post mechanical fall resulting in a left nondisplaced patella fracture. Patient continues to be in orthopedic braces. Orthopedics is on board. 2. Rhabdomyolysis, improving. We will follow up with a repeat creatinine kinase tomorrow morning. 3. Hypotension, most likely due to antihypertensive medications, improved. 4. Troponin elevation concerning for coronary artery disease. Patient is pending a stress test. 5. Acute on chronic renal failure, stable. 6. Atrial fibrillation with rapid ventricular response. The patient continues to be on Cardizem. Heart rate is better controlled. 7. Pulmonary edema. I think there is a combination of over-hydration and possible congestive heart failure with preserved ejection fraction. We have discontinued the fluid this morning. We are going to give Ms. Rooney a dose of Lasix today. 8. Protein calorie malnutrition. I am told is not eating. She has been having episodes of hypoglycemia. We are going to start her on Clinimix with lipid infusion for now until her appetite opens up. The patient disposition is still pending a rehab. cc: Brenton Win MD [facility]
[2019-06-25] MEDS: LIPOSYN 20% 250 ML IV SCH (14:57)
[2019-06-25] MEDS: CLINIMIX E 4.25%-5% SOLUTION 1,000 ML IV SCH (14:58)
[2019-06-25] MEDS: ZYVOX 600 MG/D5W 600 MG/300 ML IVPB IV SCH (16:23)
[2019-06-25] MEDS: LOPRESSOR IV SCH ×3 (16:23→23:45)
[2019-06-26] MEDS: MAXIPIME 1 GM in NS 50 ML IV SCH ×2 (00:04→11:44)
[2019-06-26] MEDS: LOPRESSOR IV SCH ×3 (01:30→11:44)
[2019-06-26] MEDS: ZYVOX 600 MG/D5W 600 MG/300 ML IVPB IV SCH ×2 (01:31→13:50)
[2019-06-26 07:00] LABS: BASO# 0.02 X1000 (0.0-0.2); BASO% 0.1 % (0.0-0.8); EOS# 0.16 X1000 (0.0-0.7); EOS% 1.1 % (0.0-10.0); HEMATOCRIT 32.1 % (37.0-47.0); HEMOGLOBIN 10.8 g/dL (12.0-16.0); IMM GRAN# 0.06 X1000 (0.0-0.04); IMM GRAN% 0.4 % (0.0-0.5); LYMPH# 1.11 X1000 (1.2-3.4); LYMPH% 7.9 % (20.5-51.1); MCH 27.9 PG (27-31); MCHC 33.6 g/dL (33-37); MCV 82.9 FL (81-99); MONO% 11.3 % (1.7-9.3); MPV 10.8 FL (7.4-10.4); NEUT# 11.18 X1000 (1.4-6.5); NEUT% 79.2 % (42.2-75.2); PLT 287 X1000 (130-400); RBC 3.87 XMIL (4.2-5.4); WBC 14.13 X1000 (4.8-10.8)
[2019-06-26 07:31] LABS: ALB/GLOB RATIO 0.8; ALBUMIN 2.4 g/dL (3.5-5.0); CALCIUM 7.8 mg/dL (8.8-10.2); CREATININE 1.8 mg/dL (0.5-0.9); MAGNESIUM 1.7 mg/dL (1.5-2.7); PHOSPHORUS 3.2 mg/dL (2.7-4.5); POTASSIUM 3.5 mmol/L (3.5-5.1); TOTAL BILIRUBIN 0.31 mg/dL (0.20-1.00); TOTAL PROTEIN 5.4 g/dL (6.3-8.3)
[2019-06-26 08:50] LABS: EOS 2 % (1-10); LYMPHS 8 % (21-51); MONO 11 % (1-9); SEGS 79 % (42-75)
[2019-06-26 08:51] LABS: ANISOCYTOSIS 1+; LARGE PLATELETS 1+; MICROCYTOSIS 1+
[2019-06-26] MEDS: ASPIRIN PO SCH (09:25)
[2019-06-26] MEDS: LOVENOX SUBQ SCH (09:25)
[2019-06-26] MEDS: CLINIMIX E 4.25%-5% SOLUTION 1,000 ML IV SCH (09:25)
[2019-06-26] MEDS: ZOFRAN IV PRN (11:43)
[2019-06-26] MEDS: HUMULIN R SUBQ SCH ×3 (11:44→21:27)
[2019-06-26] MEDS: LIPOSYN 20% 250 ML IV SCH (13:50)
--- NOTE | 2019-06-26 14:08 | PROGRESS NOTE ---
DATE: 06/26/2019 SUBJECTIVE: I have seen and examined Ms. Rooney today. This morning Ms. Rooney refers to be doing fairly okay. Per the nursing staff, she is still not wanting to eat anything and she is refusing her meals. OBJECTIVE: Vital signs: Blood pressure is 138/76, pulse of 65, respirations 16, temperature is 98.6 degrees. The patient is saturating 100% on 2.5 L. General: Ms. Rooney is a 78-year-old female. She is in bed. She is not in any distress. HEENT: Mucosa is pink and moist. Anicteric. Acyanotic. Neck: Supple. Chest: Air entry is bilaterally reduced. A few crackles posteriorly. Cardiovascular: Irregularly irregular no murmurs. GI: Abdomen is soft, nontender. Bowel sounds present. Extremities: Left knee continues to be in orthopedic braces. Distal pulses present. HOME CARE MANAGER RN: The patient looks less lethargic this morning. She would open her eyes to her name and to command and she follows basic commands. The right eye is closed up with some purulent material on it. LABORATORY DATA: WBC is down to 14.13, hemoglobin is 10.8, platelet count of 287,000. There are no bands on the peripheral smear. Chemistry is also reviewed. Creatinine is down to 1.8 this morning. AST and ALT are minimally elevated. ProB is 7,205. ASSESSMENT AND PLAN: 1. Status post mechanical fall resulting in a left nondisplaced patella fracture. This was the main reason why Ms. Rooney came to the hospital. She is in orthopedic braces, Ortho has evaluated her. 2. Rhabdomyolysis, improving. A repeat CK this morning is 497. 3. Hypotension during the course of the hospital stay. We think it was a combination of dehydration and antihypertensive medications. Medications were discontinued. 4. Troponin elevation concerning for myocardial infarction. The patient is still pending a stress test. 5. Acute on chronic renal failure. 6. Atrial fibrillation with rapid ventricular rate during the hospital course. Patient has been started on Cardizem. Heart rate is in better control. 7. Pulmonary edema with elevated proB concerning for congestive heart failure with preserved ejection fraction. We will continue to address the underlying pathology, which we think in this case is the atrial fibrillation. 8. Protein and calorie malnutrition. The patient continues not wanting to eat anything. She is currently on Clinimix and lipid infusion. She seems to be tolerating well. This morning she was kind of more alert and conversational. 9. 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 The AST and ALT are trending down from yesterday. We are going to continue to keep eye on this and avoid any hepatotoxin. So, in general, I think Ms. Rooney is doing well. We will continue encouraging her to utilize the enteral route. We will continue with the current medications including the beta beau and the antimicrobial therapy. We are going to repeat her chest x-ray tomorrow including her other lab work. I have been able to update her power of corporate attorney this morning. After I had finished examining Ms. Rooney the power of corporate attorney came by and I was able to update her. cc: Brenton Win MD
[2019-06-26] MEDS ORDERED: CHLORASEPTIC SPRAY MT PRN (18:11)
[2019-06-27] MEDS: LIPITOR PO SCH ×2 (00:28→23:43)
[2019-06-27] MEDS: MAXIPIME 1 GM in NS 50 ML IV SCH ×3 (00:33→23:43)
[2019-06-27] MEDS: LOPRESSOR IV SCH ×6 (00:38→23:42)
[2019-06-27] MEDS: ZYVOX 600 MG/D5W 600 MG/300 ML IVPB IV SCH ×2 (01:15→12:58)
[2019-06-27] MEDS: HUMULIN R SUBQ SCH ×5 (03:32→23:37)
[2019-06-27 06:38] LABS: HEMATOCRIT 31.9 % (37.0-47.0); HEMOGLOBIN 10.5 g/dL (12.0-16.0); MCH 28.1 PG (27-31); MCHC 32.9 g/dL (33-37); MCV 85.3 FL (81-99); MPV 11.4 FL (7.4-10.4); RBC 3.74 XMIL (4.2-5.4); RDW 13.5 % (11.5-14.5); WBC 11.73 X1000 (4.8-10.8)
[2019-06-27 07:02] LABS: ALBUMIN 1.8 g/dL (3.5-5.0); CALCIUM 8.2 mg/dL (8.8-10.2); CREATININE 1.6 mg/dL (0.5-0.9); PHOSPHORUS 2.7 mg/dL (2.7-4.5); POTASSIUM 3.6 mmol/L (3.5-5.1)
[2019-06-27] MEDS: CLINIMIX E 4.25%-5% SOLUTION 1,000 ML IV SCH (09:29)
[2019-06-27] MEDS: ASPIRIN PO SCH (09:30)
[2019-06-27] MEDS: LOVENOX SUBQ SCH (09:30)
[2019-06-27] MEDS: MIRALAX PO SCH (12:56)
[2019-06-27] MEDS: MEGACE LIQUID PO SCH (12:56)
--- NOTE | 2019-06-27 13:01 | PROGRESS NOTE ---
DATE: 06/27/2019 SUBJECTIVE: This morning, Ms. Rooney refers to be doing okay. The Power of Beef [employer]er was at the bedside at the time of the encounter. OBJECTIVE: Vital Signs: Blood pressure is 144/54, pulse of 72, respirations 16, temperature 98 degrees. General: Ms. Rooney is a 78-year-old female. She is in bed. No distress. HEENT: Mucosa is pink and moist. Anicteric. Acyanotic. The right eye continues to have some crusted secretions. Neck: Supple. Chest: Good air entry bilaterally. No crepitations. No rhonchi. Cardiovascular: Regular rate and rhythm with occasional extrasystolic beats. GI: Abdomen is soft, nontender. Bowel sounds present. Extremities: Left knee continues to be in orthopedic brace. Distal pulse is present. T[employer]ING SUPERVISOR: The patient is more awake, conversational today, follows basic commands. LABORATORY DATA: Laboratory data has been reviewed. WBC is 11.73, platelet count of 242,000, hemoglobin of 10.5. Chemistry is also reviewed. Creatinine is 1.6. ASSESSMENT: 1. Status post mechanical fall at home resulting in a left nondisplaced patellar fracture. The patient has been evaluated by Orthopedics. They recommend braces, and there is a plan for physical therapy rehab placement. 2. Rhabdomyolysis, improving. 3. Hypotension during the hospital course. We think it is a combination of antihypertensive medication, dehydration, and atrial fibrillation. 4. Troponin elevation, concerning for myocardial infarction. The patient is pending a stress test. 5. Acute on chronic renal failure. Creatinine continues to be trending down. 6. Atrial fibrillation with rapid ventricular response during the hospital course. The patient was on Cardizem by mouth at some point. However, because she is not eating, this has been switched to intravenous metoprolol. 7. Pulmonary edema with elevated proBNP, concerning for congestive heart failure with preserved ejection fraction. Congestive symptoms have significantly improved. 8. Protein calorie malnutrition. Will continue with supplements. 9. 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 Will continue to follow. 10. Poor oral intake. Ms. Rooney continues to be eating very poorly. We have started her on Clinimix and lipid infusion. We are going to add Megace to see if we can stimulate her appetite. According to the Power of Be[employer]er, Ms. Rooney had a few bites of her breakfast today. 11. Constipation. Will put Ms. Rooney on a bowel regimen. cc: Brenton Win MD
[2019-06-27] MEDS: LIPOSYN 20% 250 ML IV SCH (13:44)
[2019-06-28] MEDS: ZYVOX 600 MG/D5W 600 MG/300 ML IVPB IV SCH ×2 (00:34→14:57)
[2019-06-28] MEDS: MEGACE LIQUID PO SCH ×3 (02:34→20:39)
[2019-06-28] MEDS: HUMULIN R SUBQ SCH ×4 (06:42→21:00)
[2019-06-28] MEDS: LOPRESSOR IV SCH (06:42)
--- NOTE | 2019-06-28 07:34 | Diag Imaging Result Doc PS360 ---
EXAM: CHEST-PORTABLE INDICATION: dyspnea TECHNIQUE: One view COMPARISON: 06/25/2019 FINDINGS: There has been improvement in the pulmonary venous congestion and mild interstitial edema seen previously. No new consolidation is identified. Cardiac silhouette is stable. IMPRESSION: Interval improvement as described. Electronically signed by Glen Rooney 06/28/2019 7:32 AM
[2019-06-28 07:46] LABS: ALBUMIN 1.9 g/dL (3.5-5.0); CALCIUM 8.2 mg/dL (8.8-10.2); CREATININE 1.5 mg/dL (0.5-0.9); PHOSPHORUS 2.1 mg/dL (2.7-4.5); POTASSIUM 3.7 mmol/L (3.5-5.1)
[2019-06-28] MEDS: LOVENOX SUBQ SCH (08:13)
[2019-06-28] MEDS: ASPIRIN PO SCH (10:34)
[2019-06-28] MEDS: MIRALAX PO SCH (10:37)
[2019-06-28 12:47] LABS: HEPATITIS PROFILE ACUTE SEE COMMENTS
[2019-06-28] MEDS: MAXIPIME 1 GM in NS 50 ML IV SCH (13:51)
[2019-06-28] MEDS: CLINIMIX E 4.25%-5% SOLUTION 1,000 ML IV SCH ×2 (14:57→20:29)
[2019-06-28] MEDS: LIPOSYN 20% 250 ML IV SCH (15:06)
[2019-06-28] MEDS ORDERED: LASIX IV ONE (16:03)
[2019-06-28] MEDS ORDERED: LOPRESSOR IV PRN (16:04)
--- NOTE | 2019-06-28 16:40 | PROGRESS NOTE ---
DATE: 06/28/2019 SUBJECTIVE: This morning Ms. Rooney refers to be doing slightly better. There are no new complaints. OBJECTIVE: Vital signs: Blood pressure is 143/80, pulse of 102, respiration is 19, temperature is 98.7. General: Ms. Rooney is a 78-year-old female. She is in bed. She is not in any cardiopulmonary distress. HEENT: Mucosa is pink and moist. Anicteric. Acyanotic. Neck: Supple. Chest: There is good air entry bilaterally. A few basal crepitations. No rhonchi. Cardiovascular: Irregularly irregular. Abdomen: Abdomen is soft. Bowel sounds present. Extremities: No pedal edema. Left knee is in an orthopedic brace. Distal pulses present. SOCIAL MEDIA INTERN: Patient is awake, alert, and oriented. LABORATORY DATA: Sodium is 133, potassium is 3.7, chloride 98, bicarb is 19, creatinine is down to 1.5. ProBNP is 921. Hepatitis panel is negative. The patient's CK is down to 95. ASSESSMENT: 1. Status post mechanical fall at home resulting in a left nondisplaced patella fracture. Orthopedics is on board. Patient continues to be in knee braces. Physical therapy is on board. 2. Rhabdomyolysis, resolved. 3. Hypotension during the hospital course, resolved. 4. Troponin elevation concerning for demand ischemia versus myocardial infarction. Patient is pending a stress test. 5. Acute on chronic renal failure. Creatinine continues to be trending down. 6. Atrial fibrillation with rapid ventricular response during the hospital course. Patient continues to be in atrial fibrillation but better rate control. 7. Pulmonary edema with elevated proBNP, concerning for congestive heart failure with preserved ejection fraction. We will continue with the diuretic therapy. 8. Protein calorie malnutrition. Patient is on Clinimix. We will continue to encourage her to use the enteral route. 9. Transaminitis secondary to ischemic liver injury, resolved. 10. Poor oral intake. The patient is being encouraged. 11. Constipation. The patient is on a bowel regimen and she has been having regular bowel movements. cc: Brenton Win MD
[2019-06-28] MEDS: ERYTHROMYCIN OPH OINTMENT OPH SCH ×3 (18:41→20:42)
[2019-06-28] MEDS: MYCOSTATIN SUSP PO SCH ×3 (18:42→22:04)
[2019-06-28] MEDS: CARDIZEM PO SCH (20:35)
[2019-06-28] MEDS: LIPITOR PO SCH (20:36)
[2019-06-29] MEDS: MAXIPIME 1 GM in NS 50 ML IV SCH ×2 (00:32→12:06)
[2019-06-29] MEDS: ZYVOX 600 MG/D5W 600 MG/300 ML IVPB IV SCH ×2 (02:50→16:16)
[2019-06-29] MEDS: CARDIZEM PO SCH ×6 (02:54→22:21)
[2019-06-29] MEDS: HUMULIN R SUBQ SCH ×5 (06:40→22:22)
[2019-06-29] MEDS: CLINIMIX E 4.25%-5% SOLUTION 1,000 ML IV SCH ×2 (12:04→16:18)
[2019-06-29] MEDS: LOVENOX SUBQ SCH (12:09)
[2019-06-29] MEDS: ASPIRIN PO SCH (12:09)
[2019-06-29] MEDS: MEGACE LIQUID PO SCH ×2 (12:09→22:21)
[2019-06-29] MEDS: MIRALAX PO SCH (12:09)
[2019-06-29] MEDS: MYCOSTATIN SUSP PO SCH ×4 (12:09→22:21)
[2019-06-29] MEDS: ERYTHROMYCIN OPH OINTMENT OPH SCH ×4 (12:10→22:31)
[2019-06-29] MEDS: LIPOSYN 20% 250 ML IV SCH (16:16)
--- NOTE | 2019-06-29 18:34 | PROGRESS NOTE ---
DATE: 06/29/2019 SUBJECTIVE: This morning, Ms. Rooney refers to be doing a whole lot better. There was no family member at the bedside. According to her attending nurse, she seems to have eaten a little bit more than other days. She has also been having regular bowel movement. OBJECTIVE: Vital signs: Blood pressure is currently 151/99, pulse of 101, respirations 24, temperature is 98.4 degrees. The patient is saturating 99%. General: Ms. Rooney is a 78-year- old, -Iranian female. She is in bed. She is not in any cardiopulmonary distress. Mucosa is pink and moist. Anicteric. Acyanotic. Neck: Supple. Chest: Good air entry bilaterally. There are no crepitations. No rhonchi. Cardiovascular: Irregularly irregular, but no murmurs. No rubs. No gallops. Gastrointestinal: Abdomen is soft, nontender. Bowel sounds present. Extremities: Left knee continues to be in orthopedic brace. Distal pulses present. Central nervous system: Awake, alert, oriented, and follows commands. LABORATORY DATA: No new lab work for this morning. So far, blood cultures have been 48-hours negative. CURRENT MEDICATIONS: Have also been reviewed and no changes. ASSESSMENT AND PLAN: 1. Status post mechanical fall at home resulting in a left nondisplaced patella fracture. Orthopedics has evaluated the patient. We will continue with physical therapy and conservative management. 2. Rhabdomyolysis. Resolved. 3. Hospital-associated pneumonia. Patient is on cefepime and Zyvox, today is day 7. We plan to treat for a total of 10 days. 4. Hypotension during the hospital course. Resolved. 5. Transient troponin elevation. Most likely due to demand ischemia. The patient has been evaluated by Cardiology. At some point, there was a plan to do a stress test, however, they prefer to do this on outpatient. Patient's troponins have normalized. 6. Acute on chronic renal failure. 7. Atrial fibrillation with rapid ventricular response during the hospital course. The patient has been started on p.o. Cardizem. She is tolerating that. Heart rate is under control. 8. Congestive heart failure with preserved ejection fraction. 9. Protein-calorie malnutrition with poor oral intake. The patient is currently on Clinimix with lipid infusion. This morning, I am told that she is taking a little bit more of her meals. 10. Transaminitis during the hospital course. Presumably from shock liver. Improving. 11. Constipation. Resolved. Disposition. Ms. Rooney is pending to go to rehab once she is medically stable. For now, I think she seems to be gradually getting better. Today is day 7 of antimicrobial therapy because of suspected pneumonia. We are going to repeat her labs tomorrow morning, continue with physical therapy, and continue encouraging her enteral eating. cc: Brenton Win MD MTDD
[2019-06-29] MEDS ORDERED: LASIX IV ONE (19:00)
[2019-06-29] MEDS: LIPITOR PO SCH (22:21)
[2019-06-30] MEDS: MAXIPIME 1 GM in NS 50 ML IV SCH (00:23)
[2019-06-30] MEDS: ZYVOX 600 MG/D5W 600 MG/300 ML IVPB IV SCH (04:18)
[2019-06-30] MEDS: CARDIZEM PO SCH (04:18)
--- NOTE | 2019-06-30 06:08 | Diag Imaging Result Doc PS360 ---
EXAM: CHEST-PORTABLE HISTORY: dyspnea TECHNIQUE: Single view COMPARISON: 06/28/2019 FINDINGS: Poor inspiratory effort. Heart is mildly prominent and there is mild pulmonary edema. Likely trace effusions. Right basilar atelectasis. No consolidation. IMPRESSION: Stable chest Electronically signed by Harjeet Zavala 06/30/2019 6:05 AM
[2019-06-30] MEDS: HUMULIN R SUBQ SCH ×3 (07:01→16:45)
[2019-06-30] MEDS ORDERED: CARDIZEM CD PO SCH (10:15)
[2019-06-30] MEDS ORDERED: AUGMENTIN PO SCH (10:15)
[2019-06-30] MEDS: MEGACE LIQUID PO SCH (10:42)
[2019-06-30] MEDS: LOVENOX SUBQ SCH (10:42)
[2019-06-30] MEDS: MYCOSTATIN SUSP PO SCH ×2 (10:42→14:49)
[2019-06-30] MEDS: ERYTHROMYCIN OPH OINTMENT OPH SCH ×2 (10:43→14:49)
[2019-06-30] MEDS: MIRALAX PO SCH (10:43)
[2019-06-30] MEDS: ASPIRIN PO SCH (10:44)
--- NOTE | 2019-06-30 14:35 | DISCHARGE SUMMARY ---
ADMISSION DATE: 06/19/2019 DISCHARGE DATE: 06/30/2019 DISPOSITION: [facility]. CONSULTATIONS DURING THIS ADMISSION: 1. Orthopedics was consulted. The patient was seen by Dr. Goldstein, followed up by Dr. Carl. 2. Cardiology was also consulted. The patient was seen by Dr. Bellamy. INVASIVE PROCEDURES DONE DURING THIS ADMISSION: None. IMAGING STUDIES OF SIGNIFICANCE: 1. A chest x-ray initially showed no evidence of acute pathology. 2. A head CT scan showed chronic-appearing white matter changes. 3. A knee x-ray showed a nondisplaced patella fracture on the left. 4. A CT scan of the face showed right periorbital soft tissue edema, but no evidence of orbital fracture. 5. Echocardiogram showed an ejection fraction of 68%. No wall motion abnormality. 6. A repeat chest x-ray did show bilateral bronchopneumonia, cardiomegaly, and pulmonary vascular congestion. Subsequent chest x-rays showed improvement. ADMISSION DIAGNOSES: 1. Multiple falls. 2. Left nondisplaced patellar fracture. 3. Right periorbital soft tissue swelling. 4. Rhabdomyolysis. 5. Diabetes. DISCHARGE DIAGNOSES: 1. Status post mechanical fall at home, resulting in a left nondisplaced patellar fracture. 2. Right periorbital soft tissue edema with CT scan negative for any orbital fractures. 3. Traumatic rhabdomyolysis on presentation, resolved. 4. Hospital-associated pneumonia, improved. 5. Hypotension during the hospital cause secondary to sepsis and atrial fibrillation, resolved. 6. Transient troponin elevation secondary to demand ischemia. The patient was evaluated by Cardiology. 7. Acute on chronic renal failure. Creatinine stabilized at baseline. 8. Atrial fibrillation with rapid ventricular response during the hospital course. The patient is currently on Cardizem. Was evaluated by Cardiology. Due to her fall risk, they decided not to anticoagulate her. 9. Congestive heart failure with preserved ejection fraction, improved. 10. Protein calorie malnutrition. 11. Transaminitis during the hospital course, resolved. 12. Constipation, improved. 13. Diabetes mellitus. DISCHARGE MEDICATIONS: 1. Metformin 500 b.i.d. 2. Atorvastatin 40 mg p.o. at bedtime. 3. Aspirin 81 mg p.o. daily. 4. Diltiazem 180 p.o. daily. 5. MiraLAX. 6. Megace. 7. Zyvox 600 p.o. daily. 8. Amoxiclav 875 b.i.d. PRESENTING COMPLAINT: Multiple falls, weakness. HISTORY OF PRESENTING COMPLAINT: Ms. Rooney is a 78-year-old female who is known to have diabetes, dyslipidemia, hypertension, has been having a couple falls at home. On the day of presentation, apparently she tripped and fell, sustaining some injury to her left knee and her right periorbital area. She was brought into the emergency room, where she was evaluated and admitted. HOSPITAL COURSE: Ms. Rooney was evaluated initially by Orthopedics. Braces were put on the knee, and Physical Therapy was consulted. She seems to have been fairly stable until about a day or two into the hospital course, where she became quite unstable, she became very hypotensive, her troponins were slightly elevated, and she started having some shortness of breath. She was found to be in atrial fibrillation with RVR. She was started on Cardizem drip. Cardiology was consulted. Echocardiogram was done, which did not show any abnormality. There was a plan for her to do a stress test. However, because she was very hypotensive, that procedure was postponed. Ms. Rooney' lisinopril was withheld. She was fluid resuscitated, and her heart rate got better control on the Cardizem drip. A chest x-ray which was done also seems to suggest bilateral bronchopneumonia, so she was started on broad-spectrum IV antibiotics. Over the course of the hospital stay, she continued to show improvement. The later part of her hospital stay was complicated with very poor oral intake, so she was started on Clinimix with lipid infusion. Dietitian was also consulted. Ms. Rooney was started on Megace. Two or three days later, she started taking some food. She continues to be seen by Physical Therapy, Orthopedics, and Cardiology. Today, she refers to be doing a whole lot better. She seems to be eating a little bit more of her breakfast. She is clinically stable. Her current blood pressure is 136/82, pulse of 81, respirations 16, temperature 97.7 degrees. We think Ms. Rooney is now clinically stable for discharge. She needs to be transferred to a rehab to continue with her physical rehabilitation. Ms. Rooney will also follow up with Orthopedics, Dr. Goldstein, and Cardiology, Dr. Bellamy. All the discharge instructions have been discussed with her, and she voiced understanding. Ms. Rooney will have her stress test done as outpatient. This was discussed with the Cardiology team. She will follow up with Dr. Bellamy. TIME SPENT: Time spent for discharge was 37 minutes. cc: MD Maxwell Winslow MD John R. Riehl, MD
[2019-06-30 15:40] VITALS: BP 120/46
[2019-06-30] MEDS ORDERED: ZYVOX PO SCH (21:00)
== END 2019-06-30 16:46 | DRG 562 ==
LOC: SUPCPDRO → ED 11:39 → EDIPHOLD 14:59 → SUATTDRO 14:59 → 4N 16:04
PROVIDERS: ATTEND Internal Medicine